=== PATIENT | female | born 1965 | race Caucasian/White ===

== ENCOUNTER 2018-10-29 15:22 | Observation (INO) ==
[2018-10-29] MEDS ORDERED: MAGNESIUM SULF RIDER 4 GM in PREMIX 1 EACH IV PRN (15:32)
[2018-10-29] MEDS ORDERED: ZALEPLON 5 MG CAPSULE PO PRN (15:32)
[2018-10-29] MEDS ORDERED: ONDANSETRON 4 MG/2 ML VIAL IV PRN (15:32)
[2018-10-29] MEDS ORDERED: MAGNESIUM SULF RIDER 2 GM in PREMIX 1 EACH IV PRN (15:32)
[2018-10-29] MEDS ORDERED: POTASSIUM CHLORIDE 20 MEQ TABLET PO PRN (15:32)
[2018-10-29] MEDS ORDERED: BISACODYL 5 MG TABLET PO PRN (15:32)
[2018-10-29] MEDS ORDERED: METOPROLOL TARTRATE 5 MG/5 ML VIAL IV PRN (17:48)
[2018-10-29 18:10] LABS: Basophils # 0.1 10*3/uL (0.0-0.2); Basophils % 0.6 % (0.0-0.8); Eosinophils # 0.1 10*3/uL (0.0-0.87); Eosinophils % 1.7 % (0.00-10.9); Hematocrit 36.4 VOL% (35.7-47.0); Hemoglobin 11.4 GM/DL (12.0-16.0); Immature Granulocytes % 0.2 %; Immature Granulocytes Absolute 0.02 #; Lymphocytes # 3.4 10*3/uL (1.4-4.0); Lymphocytes % 41.6 % (21.3-54.2); Mean Corpuscular HGB Conc 31.3 GM/DL (32-36); Mean Corpuscular Volume 95.3 FL (87-102); Mean Platelet Volume 11.4 FL (9.6-12.0); Monocytes % 6.3 % (1.7-12.7); Neutrophils % 49.6 % (38.7-73.9); Platelet Count 263 T/CUMM (130-400); Red Blood Count 3.82 MC/CUMM (3.8-5.5); Red Cell Distribution Width 14.2 % (9.3-17.3); White Blood Count 8.1 T/CUMM (4-12)
[2018-10-29] MEDS ORDERED: MAGNESIUM SULF RIDER 2 GM in PREMIX 1 EACH IV ONE (18:30)
[2018-10-29] MEDS ORDERED: POTASSIUM CHLORIDE 20 MEQ TABLET PO ONE (18:30)
[2018-10-29] MEDS ORDERED: methylPREDNISolone SOD SUC 40 MG/1 ML VIAL IV ONE (18:30)
[2018-10-29 18:34] LABS: Albumin 4.2 G/DL (3.4-5.0); Calcium 9.4 MG/DL (8.5-10.1); Osmolality,Calculated 281.7 MOS/KG (273-304); Thyroid Stimulating Hormone 3.29 uIU/ml (0.358-3.74); Total Protein 8.4 G/DL (6.4-8.3)
[2018-10-29] MEDS: FUROSEMIDE 40 MG/4 ML VIAL IV SCH (20:37)
[2018-10-29] MEDS ORDERED: COLCHICINE 0.6 MG CAPSULE PO SCH (21:00)
[2018-10-29] MEDS ORDERED: INSULIN GLARGINE 100 UNIT/ML SUBCUT SCH (21:00)
[2018-10-29] MEDS ORDERED: CARVEDILOL 6.25 MG TABLET PO SCH (21:00)
[2018-10-29] MEDS: SIMVASTATIN 20 MG TABLET PO SCH (21:58)
[2018-10-29] MEDS: DIGOXIN 0.25 MG TABLET PO SCH (21:59)
[2018-10-30] MEDS: DIGOXIN 0.25 MG TABLET PO SCH ×2 (04:29→13:22)
[2018-10-30] MEDS: LEVOTHYROXINE 25 MCG TABLET PO SCH (06:51)
[2018-10-30 06:53] LABS: Calcium 9.3 MG/DL (8.5-10.1); Osmolality,Calculated 297.3 MOS/KG (273-304)
[2018-10-30] MEDS ORDERED: DEXTROSE 50% 25 GM/50 ML VIAL IV PRN (07:37)
[2018-10-30] MEDS ORDERED: GLUCAGON 1 MG VIAL IM PRN (07:37)
[2018-10-30] MEDS: FUROSEMIDE 40 MG/4 ML VIAL IV SCH ×2 (08:25→16:44)
[2018-10-30] MEDS ORDERED: TOPIRAMATE 25 MG TABLET PO SCH (09:00)
[2018-10-30] MEDS ORDERED: PARoxetine 10 MG TABLET PO SCH (09:00)
[2018-10-30] MEDS: LIRAGLUTIDE (VICTOZA) SUBCUT SCH (09:02)
[2018-10-30] MEDS: TOPIRAMATE 25 MG TABLET PO SCH (09:06)
[2018-10-30] MEDS: POTASSIUM CHLORIDE 20 MEQ TABLET PO SCH (09:06)
[2018-10-30] MEDS: metFORMIN 500 MG TABLET PO SCH ×2 (09:08→21:19)
[2018-10-30] MEDS: CARVEDILOL 25 MG TABLET PO SCH ×2 (09:09→21:19)
[2018-10-30] MEDS: PARoxetine 20 MG TABLET PO SCH (09:09)
[2018-10-30] MEDS: EZETIMIBE 10 MG TABLET PO SCH (09:09)
[2018-10-30] MEDS: COLCHICINE 0.6 MG CAPSULE PO SCH (09:10)
[2018-10-30] MEDS: PANTOPRAZOLE 40 MG TABLET PO SCH (09:10)
[2018-10-30 11:46] LABS: Hepatitis B Surface Ag Quant < 0.10 Index; Hepatitis B Surface Ag Result Negative (Negative)
[2018-10-30 12:11] LABS: Cyclic Citrull Peptide Interp Negative
[2018-10-30] MEDS: INSULIN REGULAR 100 UNIT/ML SUBCUT SCH ×3 (13:28→21:20)
[2018-10-30] MEDS ORDERED: predniSONE 20 MG TABLET PO ONE (14:39)
[2018-10-30] MEDS: RIVAROXABAN 20 MG TABLET PO SCH (16:44)
[2018-10-30] MEDS: INSULIN GLARGINE 100 UNIT/ML SUBCUT SCH (21:19)
[2018-10-30] MEDS: SIMVASTATIN 20 MG TABLET PO SCH (21:19)
[2018-10-31] MEDS: LEVOTHYROXINE 25 MCG TABLET PO SCH (06:30)
[2018-10-31] MEDS: predniSONE 20 MG TABLET PO SCH (09:02)
[2018-10-31] MEDS: POTASSIUM CHLORIDE 20 MEQ TABLET PO SCH (09:03)
[2018-10-31] MEDS: COLCHICINE 0.6 MG CAPSULE PO SCH (09:03)
[2018-10-31] MEDS: metFORMIN 500 MG TABLET PO SCH ×2 (09:03→21:36)
[2018-10-31] MEDS: EZETIMIBE 10 MG TABLET PO SCH (09:03)
[2018-10-31] MEDS: PARoxetine 20 MG TABLET PO SCH (09:03)
[2018-10-31] MEDS: PANTOPRAZOLE 40 MG TABLET PO SCH (09:04)
[2018-10-31] MEDS: CARVEDILOL 25 MG TABLET PO SCH ×2 (09:04→21:36)
[2018-10-31] MEDS: FUROSEMIDE 40 MG/4 ML VIAL IV SCH ×2 (09:04→15:35)
[2018-10-31] MEDS: TOPIRAMATE 25 MG TABLET PO SCH (09:04)
[2018-10-31] MEDS: LIRAGLUTIDE (VICTOZA) SUBCUT SCH (09:05)
[2018-10-31] MEDS: INSULIN REGULAR 100 UNIT/ML SUBCUT SCH ×4 (13:07→21:37)
[2018-10-31] MEDS: DIGOXIN 0.25 MG TABLET PO SCH (13:12)
[2018-10-31] MEDS: SPIRONOLACTONE 25 MG TABLET PO SCH (15:34)
[2018-10-31] MEDS: RIVAROXABAN 20 MG TABLET PO SCH (16:59)
[2018-10-31] MEDS: SIMVASTATIN 20 MG TABLET PO SCH (21:36)
[2018-10-31] MEDS: INSULIN GLARGINE 100 UNIT/ML SUBCUT SCH (21:36)
[2018-11-01 04:48] LABS: Calcium 8.9 MG/DL (8.5-10.1); Osmolality,Calculated 289.4 MOS/KG (273-304)
[2018-11-01] MEDS: LEVOTHYROXINE 25 MCG TABLET PO SCH (06:18)
[2018-11-01] MEDS: PARoxetine 20 MG TABLET PO SCH (08:37)
[2018-11-01] MEDS: metFORMIN 500 MG TABLET PO SCH (08:37)
[2018-11-01] MEDS: EZETIMIBE 10 MG TABLET PO SCH (08:37)
[2018-11-01] MEDS: predniSONE 20 MG TABLET PO SCH (08:37)
[2018-11-01] MEDS: PANTOPRAZOLE 40 MG TABLET PO SCH (08:37)
[2018-11-01] MEDS: FUROSEMIDE 40 MG/4 ML VIAL IV SCH (08:38)
[2018-11-01] MEDS: POTASSIUM CHLORIDE 20 MEQ TABLET PO SCH (08:38)
[2018-11-01] MEDS: INSULIN REGULAR 100 UNIT/ML SUBCUT SCH ×2 (08:38→11:56)
[2018-11-01] MEDS: COLCHICINE 0.6 MG CAPSULE PO SCH (08:38)
[2018-11-01] MEDS: SPIRONOLACTONE 25 MG TABLET PO SCH (08:38)
[2018-11-01] MEDS: TOPIRAMATE 25 MG TABLET PO SCH (08:38)
[2018-11-01] MEDS: LIRAGLUTIDE (VICTOZA) SUBCUT SCH (08:39)
[2018-11-01] MEDS: CARVEDILOL 25 MG TABLET PO SCH (08:44)
[2018-11-01] MEDS ORDERED: SPIRONOLACTONE 50 MG TABLET PO SCH (11:52)
[2018-11-01] MEDS ORDERED: POTASSIUM CHLORIDE 20 MEQ TABLET PO ONE (11:52)
[2018-11-01 12:20] VITALS: BP 98/73
[2018-11-01] MEDS: DIGOXIN 0.25 MG TABLET PO SCH (12:42)
[2018-11-03 18:16] LABS: TB2 Ag Minus Result 0 IU/mL
[2018-11-04 12:06] LABS: Anti SS-A Antibodies < 16 EU/ML
== END 2018-11-01 14:46 | disposition home or self-care (01) ==
LOC: N.TELEN 17:31 → INTOOBSV 17:31
PROVIDERS: ADMIT Internal Medicine Clinical Cardiac Electrophysiology; ATTEND Internal Medicine Clinical Cardiac Electrophysiology

== ENCOUNTER 2020-01-18 15:33 | Inpatient (IN) ==
[2020-01-18] MEDS ORDERED: SODIUM CHLORIDE 0.9% 1,000 ML IV STA (16:19)
[2020-01-18 16:53] LABS: ABG Base Excess -0.7 MMOL/L (-2.5-2.5); ABG HCO3 23.8 MMOL/L (20-26); ABG PCO2 29.9 MM HG (35-48); ABG PH 7.477 (7.35-7.45); ABG PO2 75.8 MM HG (80-95); ABG TCO2 20.1 MMOL/L (23-27); Allen Test Positive
[2020-01-18 17:19] LABS: Basophils % 0.1 % (0.0-0.8); Eosinophils % 0.1 % (0.00-10.9); Hematocrit 29.7 VOL% (35.7-47.0); Hemoglobin 10.2 GM/DL (12.0-16.0); Immature Granulocytes Absolute 0.09 #; Lymphocytes # 1.1 10*3/uL (1.4-4.0); Lymphocytes % 12.8 % (21.3-54.2); Mean Corpuscular HGB Conc 34.3 GM/DL (32-36); Mean Corpuscular Volume 96.7 FL (87-102); Mean Platelet Volume 11.1 FL (9.6-12.0); Monocytes % 8.7 % (1.7-12.7); NRBC # 0.06 10*3/uL; Neutrophils % 77.3 % (38.7-73.9); Platelet Count 182 T/CUMM (130-400); Red Blood Count 3.07 MC/CUMM (3.8-5.5); Red Cell Distribution Width 15.1 % (9.3-17.3); White Blood Count 8.9 T/CUMM (4-12)
[2020-01-18 17:49] LABS: Albumin 2.6 G/DL (3.4-5.0); Bilirubin,Total 0.9 MG/DL (0.2-1.0); Calcium 8.3 MG/DL (8.5-10.1); Ferritin 305.2 ng/ml (8-252); Osmolality,Calculated 279.8 MOS/KG (273-304); Total Protein 7.5 G/DL (6.4-8.3)
[2020-01-18] MEDS ORDERED: GLUCAGON 1 MG VIAL IM PRN ×2 (18:19)
[2020-01-18] MEDS ORDERED: DEXTROSE 50% 25 GM/50 ML VIAL IV PRN ×2 (18:19)
[2020-01-18 18:23] LABS: Lymphocytes 11 % (20-55); Segmented Neutrophils 82 % (50-85); Total Cells Counted 100
[2020-01-18 18:24] LABS: Hypochromasia 2+; Macrocytosis 1+; Platelet Estimate Decreased; Polychromasia 1+
[2020-01-18] MEDS ORDERED: HEPARIN 5,000 UNIT/1 ML VIAL SUBCUT SCH (18:30)
[2020-01-18] MEDS ORDERED: INFLUENZA VIRUS VACCINE 0.5 ML SYRINGE IM ONE (21:15)
[2020-01-18] MEDS: SIMVASTATIN 20 MG TABLET PO SCH (22:25)
[2020-01-18] MEDS: INSULIN GLARGINE 100 UNIT/ML SUBCUT SCH (22:25)
[2020-01-18] MEDS: INSULIN LISPRO 100 UNIT/ML SUBCUT SCH (22:25)
[2020-01-18] MEDS: carvediloL 6.25 MG TABLET PO SCH (22:25)
[2020-01-19 03:42] LABS: Basophils % 0.3 % (0.0-0.8); Eosinophils % 0.2 % (0.00-10.9); Hematocrit 25.7 VOL% (35.7-47.0); Hemoglobin 9.6 GM/DL (12.0-16.0); Immature Granulocytes % 0.9 %; Immature Granulocytes Absolute 0.09 #; Lymphocytes # 1.7 10*3/uL (1.4-4.0); Lymphocytes % 17.3 % (21.3-54.2); Mean Corpuscular HGB Conc 37.4 GM/DL (32-36); Mean Corpuscular Volume 101.2 FL (87-102); Mean Platelet Volume 11.4 FL (9.6-12.0); Monocytes % 11.8 % (1.7-12.7); NRBC # 0.06 10*3/uL; Neutrophils % 69.5 % (38.7-73.9); Platelet Count 167 T/CUMM (130-400); Red Blood Count 2.54 MC/CUMM (3.8-5.5); Red Cell Distribution Width 16.5 % (9.3-17.3); White Blood Count 9.7 T/CUMM (4-12)
[2020-01-19 04:18] LABS: Albumin 2.5 G/DL (3.4-5.0); Bilirubin,Total 1.2 MG/DL (0.2-1.0); Calcium 8.4 MG/DL (8.5-10.1); Osmolality,Calculated 281.5 MOS/KG (273-304); Risk Ratio 5.59; Thyroid Stimulating Hormone 1.33 uIU/ml (0.358-3.74); Total Protein 7.2 G/DL (6.4-8.3); VLDL CHOLESTEROL 24.2 MG/DL
[2020-01-19 04:19] LABS: Hypochromasia 1+; Lymphocytes 18 % (20-55); Macrocytosis Slight; Platelet Estimate Adequate; Polychromasia Slight; Segmented Neutrophils 67 % (50-85); Total Cells Counted 100
[2020-01-19] MEDS ORDERED: MAGNESIUM SULF RIDER 2 GM in PREMIX 1 EACH IV PRN (07:59)
[2020-01-19] MEDS ORDERED: MAGNESIUM SULF RIDER 4 GM in PREMIX 1 EACH IV PRN (07:59)
[2020-01-19] MEDS: DEXAMETHASONE 4 MG/1 ML VIAL IV SCH (08:18)
[2020-01-19] MEDS: DIGOXIN 0.25 MG TABLET PO SCH (08:19)
[2020-01-19] MEDS: lisinopriL 2.5 MG TABLET PO SCH (08:19)
[2020-01-19] MEDS: RIVAROXABAN 20 MG TABLET PO SCH (08:20)
[2020-01-19] MEDS: TOPIRAMATE 25 MG TABLET PO SCH (08:20)
[2020-01-19] MEDS: ASCORBIC ACID 500 MG TABLET PO SCH (08:20)
[2020-01-19] MEDS: PARoxetine 20 MG TABLET PO SCH (08:21)
[2020-01-19] MEDS: FOLIC ACID 1 MG TABLET PO SCH (08:21)
[2020-01-19] MEDS: SPIRONOLACTONE 25 MG TABLET PO SCH (08:21)
[2020-01-19] MEDS: carvediloL 6.25 MG TABLET PO SCH ×2 (08:21→21:23)
[2020-01-19] MEDS: PANTOPRAZOLE 40 MG TABLET PO SCH (08:22)
[2020-01-19] MEDS: INSULIN LISPRO 100 UNIT/ML SUBCUT SCH ×4 (08:22→21:24)
[2020-01-19] MEDS: LEVOTHYROXINE 25 MCG TABLET PO SCH (08:22)
[2020-01-19] MEDS: AMIODARONE 200 MG TABLET PO SCH (08:22)
[2020-01-19] MEDS ORDERED: SODIUM CHLORIDE 0.9% 1,000 ML IV PRN (10:06)
[2020-01-19] MEDS: SIMVASTATIN 20 MG TABLET PO SCH (21:23)
[2020-01-19] MEDS: INSULIN GLARGINE 100 UNIT/ML SUBCUT SCH (21:23)
[2020-01-20 05:44] LABS: Basophils % 0.1 % (0.0-0.8); Hematocrit 26.3 VOL% (35.7-47.0); Hemoglobin 8.7 GM/DL (12.0-16.0); Immature Granulocytes % 1.3 %; Immature Granulocytes Absolute 0.14 #; Lymphocytes # 1.1 10*3/uL (1.4-4.0); Lymphocytes % 10.1 % (21.3-54.2); Mean Corpuscular HGB Conc 33.1 GM/DL (32-36); Mean Corpuscular Volume 101.2 FL (87-102); Mean Platelet Volume 11.8 FL (9.6-12.0); Monocytes % 8.9 % (1.7-12.7); NRBC # 0.03 10*3/uL; Neutrophils % 79.6 % (38.7-73.9); Platelet Count 121 T/CUMM (130-400); Red Cell Distribution Width 15.4 % (9.3-17.3); White Blood Count 10.4 T/CUMM (4-12)
[2020-01-20 06:11] LABS: Calcium 8.3 MG/DL (8.5-10.1); Ferritin 240.6 ng/ml (8-252); Osmolality,Calculated 287.8 MOS/KG (273-304)
[2020-01-20] MEDS: INSULIN LISPRO 100 UNIT/ML SUBCUT SCH ×4 (09:05→20:48)
[2020-01-20] MEDS: DIGOXIN 0.25 MG TABLET PO SCH (09:13)
[2020-01-20 09:46] LABS: Folate 9.9 NG/ML (5.4-24.0)
[2020-01-20] MEDS: RIVAROXABAN 20 MG TABLET PO SCH (09:53)
[2020-01-20] MEDS: PARoxetine 20 MG TABLET PO SCH (09:53)
[2020-01-20] MEDS: DEXAMETHASONE 4 MG/1 ML VIAL IV SCH (09:53)
[2020-01-20] MEDS: FOLIC ACID 1 MG TABLET PO SCH (09:53)
[2020-01-20] MEDS: AMIODARONE 200 MG TABLET PO SCH (09:53)
[2020-01-20] MEDS: SPIRONOLACTONE 25 MG TABLET PO SCH (09:53)
[2020-01-20] MEDS: carvediloL 6.25 MG TABLET PO SCH ×2 (09:53→20:45)
[2020-01-20] MEDS: PANTOPRAZOLE 40 MG TABLET PO SCH (09:54)
[2020-01-20] MEDS: ASCORBIC ACID 500 MG TABLET PO SCH (09:54)
[2020-01-20] MEDS: TOPIRAMATE 25 MG TABLET PO SCH (09:54)
[2020-01-20] MEDS: LEVOTHYROXINE 25 MCG TABLET PO SCH (09:54)
[2020-01-20] MEDS: lisinopriL 2.5 MG TABLET PO SCH (09:54)
[2020-01-20 09:59] LABS: % Iron Saturation 16.3 % (18-50)
[2020-01-20] MEDS ORDERED: cefTRIAXone 1,000 MG in SYRINGE 1 EACH IV SCH (12:00)
[2020-01-20] MEDS: SIMVASTATIN 20 MG TABLET PO SCH (20:46)
[2020-01-20] MEDS: INSULIN GLARGINE 100 UNIT/ML SUBCUT SCH (20:47)
[2020-01-21 04:55] LABS: Basophils % 0.1 % (0.0-0.8); Hematocrit 27.2 VOL% (35.7-47.0); Hemoglobin 9.1 GM/DL (12.0-16.0); Immature Granulocytes % 1.4 %; Immature Granulocytes Absolute 0.19 #; Lymphocytes # 1.4 10*3/uL (1.4-4.0); Mean Corpuscular HGB Conc 33.5 GM/DL (32-36); Mean Corpuscular Volume 101.5 FL (87-102); Mean Platelet Volume 12.3 FL (9.6-12.0); Monocytes % 6.8 % (1.7-12.7); NRBC # 0.04 10*3/uL; Neutrophils % 81.7 % (38.7-73.9); Platelet Count 124 T/CUMM (130-400); Red Blood Count 2.68 MC/CUMM (3.8-5.5); Red Cell Distribution Width 15.7 % (9.3-17.3); White Blood Count 13.9 T/CUMM (4-12)
[2020-01-21 05:29] LABS: Calcium 8.6 MG/DL (8.5-10.1); Ferritin 207.8 ng/ml (8-252); Osmolality,Calculated 282.8 MOS/KG (273-304)
[2020-01-21 07:34] VITALS: BP 117/65
[2020-01-21] MEDS: INSULIN LISPRO 100 UNIT/ML SUBCUT SCH (08:18)
[2020-01-21] MEDS: SPIRONOLACTONE 25 MG TABLET PO SCH (08:19)
[2020-01-21] MEDS: AMIODARONE 200 MG TABLET PO SCH (08:20)
[2020-01-21] MEDS: carvediloL 6.25 MG TABLET PO SCH (08:21)
[2020-01-21] MEDS: DEXAMETHASONE 4 MG/1 ML VIAL IV SCH (08:21)
[2020-01-21] MEDS: FOLIC ACID 1 MG TABLET PO SCH (08:21)
[2020-01-21] MEDS: DIGOXIN 0.25 MG TABLET PO SCH (08:22)
[2020-01-21] MEDS: PARoxetine 20 MG TABLET PO SCH (08:22)
[2020-01-21] MEDS: PANTOPRAZOLE 40 MG TABLET PO SCH (08:26)
[2020-01-21] MEDS: ASCORBIC ACID 500 MG TABLET PO SCH (08:26)
[2020-01-21] MEDS: lisinopriL 2.5 MG TABLET PO SCH (08:26)
[2020-01-21] MEDS: RIVAROXABAN 20 MG TABLET PO SCH (08:26)
[2020-01-21] MEDS: TOPIRAMATE 25 MG TABLET PO SCH (08:26)
[2020-01-21] MEDS: LEVOTHYROXINE 25 MCG TABLET PO SCH (08:26)
== END 2020-01-21 11:56 | disposition home or self-care (01) | DRG 137 ==
LOC: N.ED 15:33 → N.EDINP 18:19 → N.2E 19:30
PROVIDERS: ADMIT Internal Medicine; ATTEND Internal Medicine

== ENCOUNTER 2020-07-23 21:14 | Inpatient (IN) ==
[2020-07-24] MEDS ORDERED: ONDANSETRON 4 MG/2 ML VIAL IV PRN (00:43)
[2020-07-24] MEDS ORDERED: MORPHINE 4 MG/1 ML VIAL IV PRN (00:43)
[2020-07-24] MEDS ORDERED: DEXTROSE 50% 25 GM/50 ML VIAL IV PRN (00:43)
[2020-07-24] MEDS ORDERED: GLUCAGON 1 MG VIAL IM PRN (00:43)
[2020-07-24] MEDS: CEFEPIME 1,000 MG in SODIUM CHLORIDE 0.9% 100 ML IV SCH ×4 (02:25→21:19)
[2020-07-24] MEDS: metroNIDAZOLE INJ 500 MG in PREMIX 1 EACH IV SCH ×4 (03:13→21:19)
[2020-07-24 05:50] LABS: Basophils % 0.1 % (0.0-0.8); Hematocrit 29.2 VOL% (35.7-47.0); Hemoglobin 9.2 GM/DL (12.0-16.0); Immature Granulocytes % 0.7 %; Immature Granulocytes Absolute 0.09 #; Lymphocytes # 0.5 10*3/uL (1.4-4.0); Lymphocytes % 3.7 % (21.3-54.2); Mean Corpuscular HGB Conc 31.5 GM/DL (32-36); Mean Corpuscular Volume 103.2 FL (87-102); Mean Platelet Volume 11.5 FL (9.6-12.0); Monocytes % 5.7 % (1.7-12.7); Neutrophils % 89.8 % (38.7-73.9); Platelet Count 224 T/CUMM (130-400); Red Blood Count 2.83 MC/CUMM (3.8-5.5); Red Cell Distribution Width 14.4 % (9.3-17.3); White Blood Count 12.5 T/CUMM (4-12)
[2020-07-24 06:01] LABS: INR 1.1; PT Patient Result 12.2 SECS (9.8-11.9)
[2020-07-24 06:10] LABS: Albumin 2.8 G/DL (3.4-5.0); Bilirubin,Total 5.1 MG/DL (0.2-1.0); Calcium 8.9 MG/DL (8.5-10.1); Osmolality,Calculated 286.4 MOS/KG (273-304); Potassium 3.5 MMOL/L (3.5-5.1); Total Protein 6.9 G/DL (6.4-8.2)
[2020-07-24 06:12] LABS: Band Neutrophils 6 % (0-10); Hypochromasia 1+; Lymphocytes 1 % (20-55); Microcytosis 1+; Nucleated Red Blood Cells 1 (0-5); Platelet Estimate Adequate; Segmented Neutrophils 87 % (50-85); Total Cells Counted 100
[2020-07-24] MEDS: INSULIN REGULAR 100 UNIT/ML SUBCUT SCH ×4 (08:40→21:20)
[2020-07-24] MEDS: PANTOPRAZOLE 40 MG VIAL IV SCH (08:41)
[2020-07-24] MEDS ORDERED: METOPROLOL TARTRATE 5 MG/5 ML VIAL IV PRN (10:48)
[2020-07-24] MEDS: LACTATED RINGERS 1,000 ML IV SCH (11:35)
[2020-07-24] MEDS ORDERED: clonazePAM 0.5 MG TABLET PO ONE (13:04)
[2020-07-24] MEDS: carvediloL 6.25 MG TABLET PO SCH ×2 (21:18→21:22)
[2020-07-24] MEDS: EZETIMIBE 10 MG TABLET PO SCH (21:18)
[2020-07-24] MEDS: SIMVASTATIN 20 MG TABLET PO SCH (21:18)
[2020-07-24] MEDS: SACUBITRIL/VALSARTAN 49-51 MG TABLET PO SCH ×2 (21:19→21:22)
[2020-07-25] MEDS: LACTATED RINGERS 1,000 ML IV SCH ×3 (00:11→08:15)
[2020-07-25] MEDS: metroNIDAZOLE INJ 500 MG in PREMIX 1 EACH IV SCH ×4 (03:18→22:00)
[2020-07-25] MEDS: CEFEPIME 1,000 MG in SODIUM CHLORIDE 0.9% 100 ML IV SCH ×4 (03:18→21:23)
[2020-07-25 05:33] LABS: Basophils % 0.4 % (0.0-0.8); Eosinophils % 0.3 % (0.00-10.9); Hemoglobin 8.7 GM/DL (12.0-16.0); Immature Granulocytes % 0.6 %; Immature Granulocytes Absolute 0.04 #; Lymphocytes # 0.8 10*3/uL (1.4-4.0); Lymphocytes % 11.4 % (21.3-54.2); Mean Corpuscular HGB Conc 32.2 GM/DL (32-36); Mean Corpuscular Volume 101.1 FL (87-102); Mean Platelet Volume 12.2 FL (9.6-12.0); Monocytes % 6.8 % (1.7-12.7); Neutrophils % 80.5 % (38.7-73.9); Platelet Count 206 T/CUMM (130-400); Red Blood Count 2.67 MC/CUMM (3.8-5.5); Red Cell Distribution Width 14.4 % (9.3-17.3); White Blood Count 7.2 T/CUMM (4-12)
[2020-07-25] MEDS: LEVOTHYROXINE 25 MCG TABLET PO SCH (05:49)
[2020-07-25 06:22] LABS: Albumin 2.5 G/DL (3.4-5.0); Bilirubin,Total 4.5 MG/DL (0.2-1.0); Osmolality,Calculated 281.1 MOS/KG (273-304); Potassium 3.4 MMOL/L (3.5-5.1); Total Protein 6.4 G/DL (6.4-8.2)
[2020-07-25] MEDS: PARoxetine 20 MG TABLET PO SCH (08:10)
[2020-07-25] MEDS: FERROUS SULFATE 325 MG TABLET PO SCH (08:10)
[2020-07-25] MEDS: FOLIC ACID 1 MG TABLET PO SCH (08:10)
[2020-07-25] MEDS: ASCORBIC ACID 500 MG TABLET PO SCH (08:11)
[2020-07-25] MEDS: CHOLECALCIFEROL 1,000 UNIT TABLET PO SCH (08:11)
[2020-07-25] MEDS: SACUBITRIL/VALSARTAN 49-51 MG TABLET PO SCH ×2 (08:13→21:31)
[2020-07-25] MEDS: TOPIRAMATE 25 MG TABLET PO SCH (08:13)
[2020-07-25] MEDS: DIGOXIN 0.125 MG TABLET PO SCH (08:13)
[2020-07-25] MEDS: carvediloL 6.25 MG TABLET PO SCH (08:13)
[2020-07-25] MEDS: INSULIN REGULAR 100 UNIT/ML SUBCUT SCH ×4 (08:14→21:23)
[2020-07-25] MEDS: PANTOPRAZOLE 40 MG VIAL IV SCH (08:15)
[2020-07-25] MEDS ORDERED: INDOMETHACIN SUPP 50 MG SUPP RECTAL ONE (08:53)
[2020-07-25] MEDS ORDERED: LACTATED RINGERS 1,000 ML IV SCH (09:00)
[2020-07-25 09:21] LABS: INR 1.2; PT Patient Result 12.3 SECS (9.8-11.9)
[2020-07-25] MEDS: INSULIN GLARGINE 100 UNIT/ML SUBCUT SCH (11:27)
[2020-07-25] MEDS: SIMVASTATIN 20 MG TABLET PO SCH (21:22)
[2020-07-25] MEDS: EZETIMIBE 10 MG TABLET PO SCH (21:22)
[2020-07-25] MEDS: carvediloL 12.5 MG TABLET PO SCH (21:22)
[2020-07-26] MEDS: CEFEPIME 1,000 MG in SODIUM CHLORIDE 0.9% 100 ML IV SCH ×4 (02:18→20:58)
[2020-07-26] MEDS: metroNIDAZOLE INJ 500 MG in PREMIX 1 EACH IV SCH ×4 (02:55→21:36)
[2020-07-26 05:02] LABS: Basophils % 0.5 % (0.0-0.8); Eosinophils # 0.1 10*3/uL (0.0-0.87); Eosinophils % 1.1 % (0.00-10.9); Hematocrit 26.7 VOL% (35.7-47.0); Hemoglobin 8.7 GM/DL (12.0-16.0); Immature Granulocytes % 0.7 %; Immature Granulocytes Absolute 0.04 #; Lymphocytes # 0.8 10*3/uL (1.4-4.0); Lymphocytes % 14.5 % (21.3-54.2); Mean Corpuscular HGB Conc 32.6 GM/DL (32-36); Mean Corpuscular Volume 99.6 FL (87-102); Mean Platelet Volume 11.8 FL (9.6-12.0); Neutrophils % 76.2 % (38.7-73.9); Platelet Count 188 T/CUMM (130-400); Red Blood Count 2.68 MC/CUMM (3.8-5.5); White Blood Count 5.6 T/CUMM (4-12)
[2020-07-26 05:25] LABS: Bilirubin,Total 2.9 MG/DL (0.2-1.0); Calcium 8.6 MG/DL (8.5-10.1); Potassium 3.2 MMOL/L (3.5-5.1); Total Protein 5.9 G/DL (6.4-8.2)
[2020-07-26] MEDS: LEVOTHYROXINE 25 MCG TABLET PO SCH (06:33)
[2020-07-26] MEDS ORDERED: INDOMETHACIN SUPP 50 MG SUPP RECTAL ONE (08:00)
[2020-07-26] MEDS ORDERED: HEPARIN/NACL 0.9% 2 UNITS/ML 0 UNIT/0 ML BAG IV ONE (08:22)
[2020-07-26] MEDS ORDERED: propofoL 200 MG/20 ML VIAL IV ONE (08:39)
[2020-07-26] MEDS ORDERED: SUCCINYLCHOLINE 200 MG/10 ML VIAL ONE (08:39)
[2020-07-26] MEDS ORDERED: ROCURONIUM 50 MG/5 ML VIAL IV ONE (08:39)
[2020-07-26] MEDS ORDERED: ETOMIDATE 40 MG/20 ML VIAL IV ONE (08:39)
[2020-07-26] MEDS ORDERED: fentaNYL 100 MCG/2 ML VIAL ONE (08:39)
[2020-07-26] MEDS ORDERED: MIDAZOLAM 2 MG/2 ML VIAL ONE (08:39)
[2020-07-26] MEDS ORDERED: LIDOCAINE 2% 5 ML VIAL ONE (08:39)
[2020-07-26] MEDS ORDERED: ESMOLOL 100 MG/10 ML VIAL IV ONE (08:45)
[2020-07-26] MEDS: LACTATED RINGERS 1,000 ML IV SCH (08:52)
[2020-07-26] MEDS: PANTOPRAZOLE 40 MG VIAL IV SCH (08:55)
[2020-07-26] MEDS: INSULIN REGULAR 100 UNIT/ML SUBCUT SCH ×4 (09:00→21:37)
[2020-07-26] MEDS ORDERED: MORPHINE 4 MG/1 ML VIAL IV PRN ×2 (09:22)
[2020-07-26] MEDS ORDERED: SEVOFLURANE 1 UNIT/15 MINUTE INH ONE (09:56)
[2020-07-26] MEDS ORDERED: PHENYLEPHRINE 10 MG/1 ML VIAL IV ONE (10:01)
[2020-07-26] MEDS ORDERED: ONDANSETRON 4 MG/2 ML VIAL ONE (10:14)
[2020-07-26] MEDS ORDERED: SUGAMMADEX 200 MG/2 ML VIAL IV ONE (10:15)
[2020-07-26] MEDS: carvediloL 12.5 MG TABLET PO SCH ×2 (12:38→23:09)
[2020-07-26] MEDS: FERROUS SULFATE 325 MG TABLET PO SCH (12:38)
[2020-07-26] MEDS: SACUBITRIL/VALSARTAN 49-51 MG TABLET PO SCH ×2 (12:38→23:09)
[2020-07-26] MEDS: FOLIC ACID 1 MG TABLET PO SCH (12:39)
[2020-07-26] MEDS: PARoxetine 20 MG TABLET PO SCH (12:40)
[2020-07-26] MEDS: DIGOXIN 0.125 MG TABLET PO SCH (12:40)
[2020-07-26] MEDS: CHOLECALCIFEROL 1,000 UNIT TABLET PO SCH (12:41)
[2020-07-26] MEDS: ASCORBIC ACID 500 MG TABLET PO SCH (12:41)
[2020-07-26] MEDS: TOPIRAMATE 25 MG TABLET PO SCH (12:41)
[2020-07-26] MEDS: INSULIN GLARGINE 100 UNIT/ML SUBCUT SCH (13:21)
[2020-07-26] MEDS ORDERED: INDOCYANINE GREEN 25 MG VIAL IV ONE (16:00)
[2020-07-26] MEDS: SIMVASTATIN 20 MG TABLET PO SCH (20:58)
[2020-07-26] MEDS: EZETIMIBE 10 MG TABLET PO SCH (20:58)
[2020-07-27] MEDS: CEFEPIME 1,000 MG in SODIUM CHLORIDE 0.9% 100 ML IV SCH ×4 (01:47→21:00)
[2020-07-27] MEDS: metroNIDAZOLE INJ 500 MG in PREMIX 1 EACH IV SCH ×4 (02:48→21:47)
[2020-07-27 05:24] LABS: Basophils # 0.1 10*3/uL (0.0-0.2); Basophils % 0.6 % (0.0-0.8); Eosinophils # 0.1 10*3/uL (0.0-0.87); Hematocrit 31.7 VOL% (35.7-47.0); Hemoglobin 10.2 GM/DL (12.0-16.0); Immature Granulocytes % 0.6 %; Immature Granulocytes Absolute 0.05 #; Lymphocytes # 1.2 10*3/uL (1.4-4.0); Lymphocytes % 14.4 % (21.3-54.2); Mean Corpuscular HGB Conc 32.2 GM/DL (32-36); Mean Corpuscular Volume 102.6 FL (87-102); Monocytes % 5.1 % (1.7-12.7); Neutrophils % 78.3 % (38.7-73.9); Platelet Count 290 T/CUMM (130-400); Red Blood Count 3.09 MC/CUMM (3.8-5.5); Red Cell Distribution Width 14.2 % (9.3-17.3); White Blood Count 8.1 T/CUMM (4-12)
[2020-07-27 05:34] LABS: Albumin 2.5 G/DL (3.4-5.0); Bilirubin,Total 2.7 MG/DL (0.2-1.0); Calcium 8.8 MG/DL (8.5-10.1); Osmolality,Calculated 284.5 MOS/KG (273-304); Potassium 3.2 MMOL/L (3.5-5.1); Total Protein 6.9 G/DL (6.4-8.2)
[2020-07-27] MEDS: POTASSIUM CHLORIDE RIDER 10 MEQ in PREMIX 1 EACH IV PRN ×4 (06:16→11:50)
[2020-07-27] MEDS: INSULIN REGULAR 100 UNIT/ML SUBCUT SCH ×4 (08:47→21:00)
[2020-07-27] MEDS: PANTOPRAZOLE 40 MG VIAL IV SCH (10:18)
[2020-07-27] MEDS: carvediloL 12.5 MG TABLET PO SCH ×2 (10:35→21:00)
[2020-07-27] MEDS: DIGOXIN 0.125 MG TABLET PO SCH (10:36)
[2020-07-27] MEDS ORDERED: fentaNYL 100 MCG/2 ML VIAL ONE ×2 (12:25→14:04)
[2020-07-27] MEDS ORDERED: SUCCINYLCHOLINE 200 MG/10 ML VIAL ONE (12:43)
[2020-07-27] MEDS ORDERED: ROCURONIUM 50 MG/5 ML VIAL IV ONE (12:43)
[2020-07-27] MEDS ORDERED: LIDOCAINE 2% 5 ML VIAL ONE (12:43)
[2020-07-27] MEDS ORDERED: MIDAZOLAM 2 MG/2 ML VIAL ONE (12:43)
[2020-07-27] MEDS ORDERED: ETOMIDATE 40 MG/20 ML VIAL IV ONE (12:43)
[2020-07-27] MEDS ORDERED: ONDANSETRON 4 MG/2 ML VIAL ONE (12:46)
[2020-07-27] MEDS ORDERED: LIDOCAINE 1% 20 ML VIAL ONE (12:56)
[2020-07-27] MEDS ORDERED: BUPIVACAINE MPF 0.25% 30 ML VIAL ONE (12:56)
[2020-07-27] MEDS ORDERED: TISSUE ADHESIVE 1 EACH APPLICATOR TOP ONE (12:56)
[2020-07-27] MEDS ORDERED: PHENYLEPHRINE 10 MG/1 ML VIAL IV ONE (13:45)
[2020-07-27] MEDS ORDERED: ACETAMINOPHEN INJ 1,000 MG/100 ML VIAL IV ONE (14:47)
[2020-07-27] MEDS ORDERED: KETOROLAC 30 MG/1 ML VIAL ONE (14:47)
[2020-07-27] MEDS ORDERED: NEOSTIGMINE 10 MG/10 ML VIAL ONE (14:47)
[2020-07-27] MEDS ORDERED: ATROPINE 0.4 MG/1 ML VIAL ONE (14:47)
[2020-07-27] MEDS ORDERED: GLYCOPYRROLATE 0.4 MG/2 ML VIAL ONE (14:47)
[2020-07-27] MEDS ORDERED: SEVOFLURANE 1 UNIT/15 MINUTE INH ONE (15:08)
[2020-07-27] MEDS ORDERED: DEXAMETHASONE 4 MG/1 ML VIAL ONE (15:08)
[2020-07-27] MEDS ORDERED: ONDANSETRON 4 MG/2 ML VIAL IV PRN (15:34)
[2020-07-27] MEDS ORDERED: KETOROLAC 15 MG/1 ML VIAL IV PRN (15:46)
[2020-07-27] MEDS ORDERED: ALBUTEROL/IPRATROPIUM 3 ML NEB RESP TX PRN (15:46)
[2020-07-27] MEDS ORDERED: ACETAMINOPHEN 325 MG TABLET PO PRN (15:46)
[2020-07-27] MEDS ORDERED: PHENYLEPHRINE DRIP 40 MG/250 ML PREMIX IV ONE (15:47)
[2020-07-27] MEDS: SACUBITRIL/VALSARTAN 49-51 MG TABLET PO SCH ×2 (15:56→21:00)
[2020-07-27] MEDS: LEVOTHYROXINE 25 MCG TABLET PO SCH (15:56)
[2020-07-27] MEDS: FOLIC ACID 1 MG TABLET PO SCH (15:56)
[2020-07-27] MEDS: FERROUS SULFATE 325 MG TABLET PO SCH (15:56)
[2020-07-27] MEDS: CHOLECALCIFEROL 1,000 UNIT TABLET PO SCH (15:57)
[2020-07-27] MEDS: PARoxetine 20 MG TABLET PO SCH (15:57)
[2020-07-27] MEDS: ASCORBIC ACID 500 MG TABLET PO SCH (15:57)
[2020-07-27] MEDS: TOPIRAMATE 25 MG TABLET PO SCH (15:57)
[2020-07-27] MEDS: LACTATED RINGERS 1,000 ML IV SCH ×2 (15:57→16:17)
[2020-07-27] MEDS: INSULIN GLARGINE 100 UNIT/ML SUBCUT SCH (15:57)
[2020-07-27 16:21] LABS: Hematocrit 29.5 VOL% (35.7-47.0); Hemoglobin 9.4 GM/DL (12.0-16.0)
[2020-07-27 18:46] LABS: Bilirubin,Urine Negative (Negative); Blood, Urine Negative (Negative); Glucose,Urine (UA) >=500 mg/dL (Negative); Hyaline Casts,Urine 3 /LPF (0-3); Ketones,Urine Negative (Negative); Mucus,Urine Occasional /LPF (Occasional); Nitrite,Urine Negative (Negative); Protein,Urine Negative; RBC,Urine 1 /HPF (0-4); Squamous Epithelial Cell,Urine Occasional /HPF (0-10); Urine Appearance CLEAR (Clear); Urine Color Amber (Yellow); Urine Specific Gravity 1.013 (1.001-1.035); Urine Urobilinogen < 2.0 EU/DL (0.2-1.0)
[2020-07-27] MEDS: EZETIMIBE 10 MG TABLET PO SCH (21:00)
[2020-07-27] MEDS: SIMVASTATIN 20 MG TABLET PO SCH (21:00)
[2020-07-28] MEDS: CEFEPIME 1,000 MG in SODIUM CHLORIDE 0.9% 100 ML IV SCH ×4 (02:01→21:49)
[2020-07-28] MEDS: metroNIDAZOLE INJ 500 MG in PREMIX 1 EACH IV SCH ×4 (02:39→22:30)
[2020-07-28] MEDS: LACTATED RINGERS 1,000 ML IV SCH ×2 (02:40→04:51)
[2020-07-28 05:52] LABS: Basophils % 0.1 % (0.0-0.8); Hematocrit 32.9 VOL% (35.7-47.0); Hemoglobin 10.1 GM/DL (12.0-16.0); Immature Granulocytes % 0.8 %; Immature Granulocytes Absolute 0.11 #; Lymphocytes # 0.9 10*3/uL (1.4-4.0); Lymphocytes % 6.4 % (21.3-54.2); Mean Corpuscular HGB Conc 30.7 GM/DL (32-36); Mean Corpuscular Volume 105.1 FL (87-102); Mean Platelet Volume 11.4 FL (9.6-12.0); Monocytes % 5.8 % (1.7-12.7); Neutrophils % 86.9 % (38.7-73.9); Platelet Count 296 T/CUMM (130-400); Red Blood Count 3.13 MC/CUMM (3.8-5.5); Red Cell Distribution Width 14.7 % (9.3-17.3); White Blood Count 14.4 T/CUMM (4-12)
[2020-07-28] MEDS: LEVOTHYROXINE 25 MCG TABLET PO SCH (05:53)
[2020-07-28] MEDS ORDERED: PHENYLEPHRINE DRIP 40 MG/250 ML PREMIX IV PRN (06:05)
[2020-07-28 06:19] LABS: Calcium 8.4 MG/DL (8.5-10.1); Osmolality,Calculated 289.1 MOS/KG (273-304); Potassium 4.1 MMOL/L (3.5-5.1)
[2020-07-28 06:27] LABS: Albumin 1.9 G/DL (3.4-5.0); Bilirubin,Total 1.4 MG/DL (0.2-1.0); Calcium 8.5 MG/DL (8.5-10.1); Osmolality,Calculated 282.5 MOS/KG (273-304); Total Protein 5.6 G/DL (6.4-8.2)
[2020-07-28] MEDS ORDERED: MAGNESIUM SULF RIDER 4 GM in PREMIX 1 EACH IV PRN (06:28)
[2020-07-28] MEDS: MAGNESIUM SULF RIDER 2 GM in PREMIX 1 EACH IV PRN (06:45)
[2020-07-28] MEDS: PANTOPRAZOLE 40 MG VIAL IV SCH (08:28)
[2020-07-28] MEDS: INSULIN REGULAR 100 UNIT/ML SUBCUT SCH ×4 (08:28→21:49)
[2020-07-28] MEDS: CHOLECALCIFEROL 1,000 UNIT TABLET PO SCH (08:29)
[2020-07-28] MEDS: INSULIN GLARGINE 100 UNIT/ML SUBCUT SCH (08:29)
[2020-07-28] MEDS: PARoxetine 20 MG TABLET PO SCH (08:29)
[2020-07-28] MEDS: FOLIC ACID 1 MG TABLET PO SCH (08:29)
[2020-07-28] MEDS: FERROUS SULFATE 325 MG TABLET PO SCH (08:29)
[2020-07-28] MEDS: ASCORBIC ACID 500 MG TABLET PO SCH (08:29)
[2020-07-28] MEDS: TOPIRAMATE 25 MG TABLET PO SCH (08:30)
[2020-07-28] MEDS: DIGOXIN 0.125 MG TABLET PO SCH (08:30)
[2020-07-28] MEDS: SACUBITRIL/VALSARTAN 49-51 MG TABLET PO SCH ×3 (08:30→21:51)
[2020-07-28] MEDS: carvediloL 12.5 MG TABLET PO SCH (08:31)
[2020-07-28] MEDS: SIMVASTATIN 20 MG TABLET PO SCH (21:50)
[2020-07-28] MEDS: carvediloL 6.25 MG TABLET PO SCH (21:50)
[2020-07-28] MEDS: EZETIMIBE 10 MG TABLET PO SCH (21:50)
[2020-07-29] MEDS: CEFEPIME 1,000 MG in SODIUM CHLORIDE 0.9% 100 ML IV SCH ×4 (02:02→21:54)
[2020-07-29] MEDS: metroNIDAZOLE INJ 500 MG in PREMIX 1 EACH IV SCH ×4 (03:30→22:39)
[2020-07-29 04:35] LABS: Basophils % 0.2 % (0.0-0.8); Eosinophils % 0.1 % (0.00-10.9); Hematocrit 19.6 VOL% (35.7-47.0); Immature Granulocytes % 1.2 %; Immature Granulocytes Absolute 0.22 #; Lymphocytes # 1.8 10*3/uL (1.4-4.0); Lymphocytes % 9.3 % (21.3-54.2); Mean Corpuscular HGB Conc 30.6 GM/DL (32-36); Mean Corpuscular Volume 104.3 FL (87-102); Mean Platelet Volume 11.2 FL (9.6-12.0); Monocytes % 7.9 % (1.7-12.7); Neutrophils % 81.3 % (38.7-73.9); Platelet Count 319 T/CUMM (130-400); Red Blood Count 1.88 MC/CUMM (3.8-5.5); Red Cell Distribution Width 14.7 % (9.3-17.3)
[2020-07-29 04:58] LABS: Albumin 1.9 G/DL (3.4-5.0); Bilirubin,Total 1.1 MG/DL (0.2-1.0); Calcium 8.4 MG/DL (8.5-10.1); Osmolality,Calculated 281.7 MOS/KG (273-304); Potassium 3.8 MMOL/L (3.5-5.1); Total Protein 5.5 G/DL (6.4-8.2)
[2020-07-29 05:27] LABS: Hemoglobin 9.4 GM/DL (12.0-16.0)
[2020-07-29] MEDS: LEVOTHYROXINE 25 MCG TABLET PO SCH (06:55)
[2020-07-29] MEDS: INSULIN REGULAR 100 UNIT/ML SUBCUT SCH ×4 (08:11→21:37)
[2020-07-29] MEDS: TOPIRAMATE 25 MG TABLET PO SCH (08:12)
[2020-07-29] MEDS: SACUBITRIL/VALSARTAN 49-51 MG TABLET PO SCH ×2 (08:12→21:17)
[2020-07-29] MEDS: INSULIN GLARGINE 100 UNIT/ML SUBCUT SCH (08:12)
[2020-07-29] MEDS: PANTOPRAZOLE 40 MG VIAL IV SCH (08:12)
[2020-07-29] MEDS: ASCORBIC ACID 500 MG TABLET PO SCH (08:12)
[2020-07-29] MEDS: PARoxetine 20 MG TABLET PO SCH (08:13)
[2020-07-29] MEDS: CHOLECALCIFEROL 1,000 UNIT TABLET PO SCH (08:13)
[2020-07-29] MEDS: carvediloL 6.25 MG TABLET PO SCH ×2 (08:13→21:17)
[2020-07-29] MEDS: DIGOXIN 0.125 MG TABLET PO SCH (08:13)
[2020-07-29] MEDS: FOLIC ACID 1 MG TABLET PO SCH (08:13)
[2020-07-29] MEDS: FERROUS SULFATE 325 MG TABLET PO SCH (08:13)
[2020-07-29] MEDS ORDERED: INSULIN GLARGINE 100 UNIT/ML SUBCUT ONE (10:32)
[2020-07-29] MEDS: SIMVASTATIN 20 MG TABLET PO SCH (21:17)
[2020-07-29] MEDS: EZETIMIBE 10 MG TABLET PO SCH (21:17)
[2020-07-30] MEDS: CEFEPIME 1,000 MG in SODIUM CHLORIDE 0.9% 100 ML IV SCH ×3 (02:34→14:20)
[2020-07-30] MEDS: metroNIDAZOLE INJ 500 MG in PREMIX 1 EACH IV SCH ×3 (03:35→14:58)
[2020-07-30] MEDS: LEVOTHYROXINE 25 MCG TABLET PO SCH (05:48)
[2020-07-30 06:21] LABS: Basophils % 0.3 % (0.0-0.8); Eosinophils % 0.3 % (0.00-10.9); Hemoglobin 8.7 GM/DL (12.0-16.0); Immature Granulocytes % 1.6 %; Immature Granulocytes Absolute 0.19 #; Lymphocytes # 1.3 10*3/uL (1.4-4.0); Lymphocytes % 10.6 % (21.3-54.2); Mean Corpuscular HGB Conc 31.1 GM/DL (32-36); Mean Corpuscular Volume 104.5 FL (87-102); Mean Platelet Volume 11.2 FL (9.6-12.0); Monocytes % 6.2 % (1.7-12.7); Platelet Count 223 T/CUMM (130-400); Red Blood Count 2.68 MC/CUMM (3.8-5.5); Red Cell Distribution Width 14.7 % (9.3-17.3); White Blood Count 11.9 T/CUMM (4-12)
[2020-07-30 06:53] LABS: Calcium 8.3 MG/DL (8.5-10.1); Osmolality,Calculated 281.8 MOS/KG (273-304); Potassium 3.5 MMOL/L (3.5-5.1)
[2020-07-30] MEDS: CHOLECALCIFEROL 1,000 UNIT TABLET PO SCH (08:29)
[2020-07-30] MEDS: FOLIC ACID 1 MG TABLET PO SCH (08:29)
[2020-07-30] MEDS: ASCORBIC ACID 500 MG TABLET PO SCH (08:29)
[2020-07-30] MEDS: PARoxetine 20 MG TABLET PO SCH (08:29)
[2020-07-30] MEDS: DIGOXIN 0.125 MG TABLET PO SCH (08:30)
[2020-07-30] MEDS: PANTOPRAZOLE 40 MG VIAL IV SCH (08:32)
[2020-07-30] MEDS: INSULIN REGULAR 100 UNIT/ML SUBCUT SCH ×2 (08:33→11:29)
[2020-07-30] MEDS ORDERED: INSULIN GLARGINE 100 UNIT/ML SUBCUT SCH (09:00)
[2020-07-30] MEDS: FERROUS SULFATE 325 MG TABLET PO SCH (09:15)
[2020-07-30] MEDS: TOPIRAMATE 25 MG TABLET PO SCH (09:15)
[2020-07-30] MEDS: carvediloL 6.25 MG TABLET PO SCH (09:31)
[2020-07-30] MEDS: SACUBITRIL/VALSARTAN 49-51 MG TABLET PO SCH (09:31)
[2020-07-30] MEDS: MAGNESIUM SULF RIDER 2 GM in PREMIX 1 EACH IV PRN (10:16)
[2020-07-30 11:23] VITALS: BP 106/59
== END 2020-07-30 16:56 | disposition home or self-care (01) | DRG 263 ==
LOC: SUATTDRO 23:46 → N.3E 23:46 → N.ICU 07-27 15:54 → N.TELES 07-29 11:20
PROVIDERS: ADMIT Internal Medicine; ATTEND Internal Medicine
PROC: ERCPWSP (ICD-10-PCS; 2020-07-26 08:35)